=== PATIENT | male | born 1935 | race Caucasian/White ===

== ENCOUNTER 2016-09-14 12:38 | Outpatient (CLI) | payer MEDICARE, OTHER | END 2016-09-14 12:39 | disposition home or self-care (01) | DX: I48.2 Chronic atrial fibrillation (principal); Z79.01 Long term (current) use of anticoagulants ==

== ENCOUNTER 2016-09-23 12:54 | Outpatient (CLI) | payer MEDICARE, OTHER | END 2016-09-23 12:55 | disposition home or self-care (01) | DX: I48.2 Chronic atrial fibrillation (principal); Z79.01 Long term (current) use of anticoagulants ==

== ENCOUNTER 2016-10-06 13:59 | Outpatient (CLI) | payer MEDICARE, OTHER | END 2016-10-06 14:00 | disposition home or self-care (01) | DX: I48.2 Chronic atrial fibrillation (principal); Z79.01 Long term (current) use of anticoagulants ==

== ENCOUNTER 2016-10-21 12:55 | Outpatient (CLI) | payer MEDICARE, OTHER | END 2016-10-21 12:56 | disposition home or self-care (01) | LOC: LAB.F 12:55 | PROVIDERS: ATTEND Pharmacist | DX: I48.2 Chronic atrial fibrillation (principal); Z79.01 Long term (current) use of anticoagulants | CPT/HCPCS: 85610 ==

== ENCOUNTER 2016-11-04 13:33 | Outpatient (CLI) | payer MEDICARE, OTHER | END 2016-11-04 13:34 | disposition home or self-care (01) | DX: I48.2 Chronic atrial fibrillation (principal); Z79.01 Long term (current) use of anticoagulants ==

== ENCOUNTER 2017-03-18 12:47 | Outpatient (CLI) | payer MEDICARE, OTHER | END 2017-03-18 12:48 | disposition home or self-care (01) | LOC: LAB.F 12:47 | PROVIDERS: ATTEND Pharmacist | DX: I48.2 Chronic atrial fibrillation (principal) | CPT/HCPCS: 85610 ==

== ENCOUNTER 2017-05-26 12:56 | Outpatient (CLI) | payer MEDICARE, OTHER | END 2017-05-26 12:57 | disposition home or self-care (01) | LOC: LAB.F 12:56 | PROVIDERS: ATTEND Pharmacist | DX: I48.2 Chronic atrial fibrillation (principal); Z79.01 Long term (current) use of anticoagulants | CPT/HCPCS: 85610 ==

== ENCOUNTER 2017-08-15 11:29 | Outpatient (CLI) | payer MEDICARE, OTHER | END 2017-08-15 11:30 | disposition home or self-care (01) | LOC: LAB.F 11:29 | PROVIDERS: ATTEND Pharmacist | DX: I48.2 Chronic atrial fibrillation (principal); Z79.01 Long term (current) use of anticoagulants | CPT/HCPCS: 85610 ==

== ENCOUNTER 2017-09-07 13:32 | Outpatient (CLI) | payer MEDICARE, OTHER | END 2017-09-07 13:33 | disposition home or self-care (01) | LOC: LAB.F 13:32 | PROVIDERS: ATTEND Pharmacist | DX: I48.2 Chronic atrial fibrillation (principal); Z79.01 Long term (current) use of anticoagulants | CPT/HCPCS: 85610 ==

== ENCOUNTER 2017-09-26 09:07 | Outpatient (CLI) | payer MEDICARE, OTHER | END 2017-09-26 09:08 | disposition home or self-care (01) | LOC: LAB.F 09:07 | PROVIDERS: ATTEND Pharmacist | DX: I48.2 Chronic atrial fibrillation (principal); Z79.01 Long term (current) use of anticoagulants | CPT/HCPCS: 85610 ==

== ENCOUNTER 2017-10-10 13:31 | Outpatient (CLI) | payer MEDICARE, OTHER | END 2017-10-10 13:32 | disposition home or self-care (01) | LOC: LAB.F 13:31 | PROVIDERS: ATTEND Pharmacist | DX: I48.2 Chronic atrial fibrillation (principal); Z79.01 Long term (current) use of anticoagulants | CPT/HCPCS: 85610 ==

== ENCOUNTER 2017-11-24 11:04 | Outpatient (CLI) | payer MEDICARE, OTHER | END 2017-11-24 11:05 | disposition home or self-care (01) | LOC: LAB.F 11:04 | PROVIDERS: ATTEND Pharmacist | DX: I48.2 Chronic atrial fibrillation (principal); Z79.01 Long term (current) use of anticoagulants | CPT/HCPCS: 85610 ==

== ENCOUNTER 2018-01-04 09:26 | Outpatient (CLI) | payer MEDICARE, OTHER | END 2018-01-04 09:27 | disposition home or self-care (01) | LOC: LAB.F 09:26 | PROVIDERS: ATTEND Pharmacist | DX: I48.2 Chronic atrial fibrillation (principal); Z79.01 Long term (current) use of anticoagulants | CPT/HCPCS: 85610 ==

== ENCOUNTER 2018-03-06 14:41 | Outpatient (CLI) | END 2018-03-06 14:42 | disposition home or self-care (01) ==

== ENCOUNTER 2018-05-11 13:23 | Outpatient (CLI) | payer MEDICARE, OTHER | END 2018-05-11 13:24 | disposition home or self-care (01) | LOC: LAB.F 13:23 | PROVIDERS: ATTEND Pharmacist | DX: I48.2 Chronic atrial fibrillation (principal); Z79.01 Long term (current) use of anticoagulants | CPT/HCPCS: 85610 ==

== ENCOUNTER 2018-05-24 14:31 | Outpatient (CLI) | payer MEDICARE, OTHER | END 2018-05-24 14:32 | disposition home or self-care (01) | LOC: LAB.F 14:31 | PROVIDERS: ATTEND Pharmacist | DX: I48.2 Chronic atrial fibrillation (principal); Z79.01 Long term (current) use of anticoagulants | CPT/HCPCS: 85610 ==

== ENCOUNTER 2018-06-28 14:55 | Outpatient (CLI) | payer MEDICARE, OTHER | END 2018-06-28 14:56 | disposition home or self-care (01) | LOC: LAB.F 14:55 | PROVIDERS: ATTEND Pharmacist | DX: I48.2 Chronic atrial fibrillation (principal); Z79.01 Long term (current) use of anticoagulants | CPT/HCPCS: 85610 ==

== ENCOUNTER 2018-09-04 09:30 | Outpatient (CLI) | payer MEDICARE, OTHER | END 2018-09-04 09:31 | disposition home or self-care (01) | LOC: LAB.F 09:30 | PROVIDERS: ATTEND Pharmacist | DX: I48.2 Chronic atrial fibrillation (principal); Z79.01 Long term (current) use of anticoagulants | CPT/HCPCS: 85610 ==

== ENCOUNTER 2018-09-20 12:29 | Outpatient (CLI) | payer MEDICARE, OTHER | END 2018-09-20 12:30 | disposition home or self-care (01) | LOC: LAB.F 12:29 | PROVIDERS: ATTEND Pharmacist | DX: I48.2 Chronic atrial fibrillation (principal); Z79.01 Long term (current) use of anticoagulants | CPT/HCPCS: 85610 ==

== ENCOUNTER 2018-10-13 13:11 | Outpatient (CLI) | payer MEDICARE, OTHER | END 2018-10-13 13:12 | disposition home or self-care (01) | LOC: LAB.F 13:11 | PROVIDERS: ATTEND Pharmacist | DX: I48.2 Chronic atrial fibrillation (principal); Z79.01 Long term (current) use of anticoagulants | CPT/HCPCS: 85610 ==

== ENCOUNTER 2018-11-10 13:33 | Outpatient (CLI) | payer MEDICARE, OTHER | END 2018-11-10 13:34 | disposition home or self-care (01) | LOC: LAB.F 13:33 | PROVIDERS: ATTEND Pharmacist | DX: I48.2 Chronic atrial fibrillation (principal); Z79.01 Long term (current) use of anticoagulants | CPT/HCPCS: 85610 ==

== ENCOUNTER 2018-12-11 11:19 | Outpatient (CLI) | payer MEDICARE, OTHER | END 2018-12-11 11:20 | disposition home or self-care (01) | LOC: LAB.F 11:19 | PROVIDERS: ATTEND Pharmacist | DX: I48.2 Chronic atrial fibrillation (principal); Z79.01 Long term (current) use of anticoagulants | CPT/HCPCS: 85610 ==

== ENCOUNTER 2019-01-11 15:48 | Outpatient (CLI) | payer MEDICARE, OTHER | END 2019-01-11 23:59 | disposition home or self-care (01) | LOC: LAB.F 15:48 | PROVIDERS: ATTEND Pharmacist | DX: I48.2 Chronic atrial fibrillation (principal); Z79.01 Long term (current) use of anticoagulants | CPT/HCPCS: 85610 ==

== ENCOUNTER 2019-01-23 14:06 | Outpatient (CLI) | payer MEDICARE, OTHER | END 2019-01-23 14:07 | disposition home or self-care (01) | LOC: LAB.F 14:06 | PROVIDERS: ATTEND Pharmacist | DX: I48.2 Chronic atrial fibrillation (principal); Z79.01 Long term (current) use of anticoagulants | CPT/HCPCS: 85610 ==

== ENCOUNTER 2019-02-06 12:45 | Outpatient (CLI) | payer MEDICARE, OTHER | END 2019-02-06 12:46 | disposition home or self-care (01) | LOC: LAB.F 12:45 | PROVIDERS: ATTEND Pharmacist | DX: I48.2 Chronic atrial fibrillation (principal); Z79.01 Long term (current) use of anticoagulants | CPT/HCPCS: 85610 ==

== ENCOUNTER 2019-02-22 11:19 | Outpatient (CLI) | payer MEDICARE, OTHER | END 2019-02-22 11:20 | disposition home or self-care (01) | LOC: LAB.F 11:19 | PROVIDERS: ATTEND Pharmacist | DX: I48.2 Chronic atrial fibrillation (principal); Z79.01 Long term (current) use of anticoagulants | CPT/HCPCS: 85610 ==

== ENCOUNTER 2019-03-13 12:32 | Outpatient (CLI) | payer MEDICARE, OTHER | END 2019-03-13 12:33 | disposition home or self-care (01) | LOC: LAB.S 12:32 | PROVIDERS: ATTEND Pharmacist | DX: I48.2 Chronic atrial fibrillation (principal); Z79.01 Long term (current) use of anticoagulants | CPT/HCPCS: 85610 ==

== ENCOUNTER 2019-05-16 13:32 | Outpatient (CLI) | payer MEDICARE, OTHER | END 2019-05-16 13:33 | disposition home or self-care (01) | LOC: LAB.S 13:32 | PROVIDERS: ATTEND Pharmacist | DX: I48.2 Chronic atrial fibrillation (principal); Z79.01 Long term (current) use of anticoagulants | CPT/HCPCS: 85610 ==

== ENCOUNTER 2019-06-08 13:08 | Outpatient (CLI) | payer MEDICARE, OTHER | END 2019-06-08 13:09 | disposition home or self-care (01) | LOC: LAB.S 13:08 | PROVIDERS: ATTEND Pharmacist | DX: I48.2 Chronic atrial fibrillation (principal); Z79.01 Long term (current) use of anticoagulants | CPT/HCPCS: 85610 ==

== ENCOUNTER 2019-06-12 11:34 | Outpatient (CLI) | payer MEDICARE, OTHER | END 2019-06-12 11:35 | disposition home or self-care (01) | LOC: LAB.S 11:34 | PROVIDERS: ATTEND Pharmacist | DX: Z51.81 Encounter for therapeutic drug level monitoring (principal); Z79.01 Long term (current) use of anticoagulants | CPT/HCPCS: 85610 ==

== ENCOUNTER 2019-06-18 13:26 | Outpatient (CLI) | payer MEDICARE, OTHER | END 2019-06-18 13:27 | disposition home or self-care (01) | LOC: LAB.S 13:26 | PROVIDERS: ATTEND Pharmacist | DX: Z79.01 Long term (current) use of anticoagulants (principal) | CPT/HCPCS: 85610 ==

== ENCOUNTER 2019-06-21 11:37 | Outpatient (CLI) | payer MEDICARE, OTHER | END 2019-06-21 11:38 | disposition home or self-care (01) | LOC: LAB.S 11:37 | PROVIDERS: ATTEND Pharmacist | DX: Z51.81 Encounter for therapeutic drug level monitoring (principal); Z79.01 Long term (current) use of anticoagulants | CPT/HCPCS: 85610 ==

== ENCOUNTER 2019-06-25 10:36 | Outpatient (CLI) | payer MEDICARE, OTHER | END 2019-06-25 10:37 | disposition home or self-care (01) | LOC: LAB.S 10:36 | PROVIDERS: ATTEND Pharmacist | DX: Z79.01 Long term (current) use of anticoagulants (principal) | CPT/HCPCS: 85610 ==

== ENCOUNTER 2019-07-02 14:31 | Outpatient (CLI) | payer MEDICARE, OTHER | END 2019-07-02 14:32 | disposition home or self-care (01) | LOC: LAB.S 14:31 | PROVIDERS: ATTEND Pharmacist | DX: Z79.01 Long term (current) use of anticoagulants (principal) | CPT/HCPCS: 85610 ==

== ENCOUNTER 2019-07-16 14:04 | Outpatient (CLI) | payer MEDICARE, OTHER | END 2019-07-16 14:05 | disposition home or self-care (01) | LOC: LAB.S 14:04 | PROVIDERS: ATTEND Pharmacist | DX: Z79.01 Long term (current) use of anticoagulants (principal) | CPT/HCPCS: 85610 ==

== ENCOUNTER 2019-07-23 11:19 | Outpatient (CLI) | payer MEDICARE, OTHER | END 2019-07-23 11:20 | disposition home or self-care (01) | LOC: LAB.S 11:19 | PROVIDERS: ATTEND Pharmacist | DX: Z79.01 Long term (current) use of anticoagulants (principal) | CPT/HCPCS: 85610 ==

== ENCOUNTER 2019-07-30 14:43 | Outpatient (CLI) | payer MEDICARE, OTHER | END 2019-07-30 14:44 | disposition home or self-care (01) | LOC: LAB.S 14:43 | PROVIDERS: ATTEND Pharmacist | DX: Z79.01 Long term (current) use of anticoagulants (principal) | CPT/HCPCS: 85610 ==

== ENCOUNTER 2019-08-20 10:54 | Outpatient (CLI) | payer MEDICARE, OTHER | END 2019-08-20 10:55 | disposition home or self-care (01) | LOC: LAB.S 10:54 | PROVIDERS: ATTEND Pharmacist | DX: Z79.01 Long term (current) use of anticoagulants (principal) | CPT/HCPCS: 85610 ==

== ENCOUNTER 2019-09-03 12:16 | Outpatient (CLI) | payer MEDICARE, OTHER | END 2019-09-03 12:17 | disposition home or self-care (01) | LOC: LAB.S 12:16 | PROVIDERS: ATTEND Pharmacist | DX: Z79.01 Long term (current) use of anticoagulants (principal) | CPT/HCPCS: 85610 ==

== ENCOUNTER 2019-09-07 19:07 | Emergency (ER) | payer MEDICARE, OTHER ==
--- NOTE | 2019-09-07 20:30 | ED Physician Documentation ---
PD HPI LOWER EXT INJURY - Stated complaint Stated Complaint: R FOOT BLEED/BLOOD THINNERS - Chief complaint Chief Complaint: Laceration - History obtained from History obtained from: Patient, Family - History of Present Illness PD HPI LOW EXT INJURY LOCATION: Right, Toe (great toe) Type of injury: Other (He says he had a small lump of dry skin on the tip of the toe that he pulled off and then it started bleeding and has continued to do so over the last couple of hours.). No: Blunt / blow Where injury occurred: Home Timing - onset: Today (He had had a small growth of skin in the area for a week or 2 or longer that he then pulled off today.) Timing - details: Abrupt onset Worsened by: Palpating Associated symptoms: Numbness (chronic due to neuropathy). No: Weakness Contributing factors: Anticoagulated. No: Prior ortho surgery Similar symptoms before: Has not had sx before Recently seen: Clinic (INR last week was 2.4) Review of Systems Constitutional: denies: Fever, Chills Neurologic: reports: Numbness (generally in feet and lower legs due to neuropathy.). denies: Focal weakness Endocrine: reports: Easy bruising / bleeding PD PAST MEDICAL HISTORY - Past Medical History Past Medical History: Yes Cardiovascular: Congestive heart failure, Hypertension, High cholesterol, Arrhythmia Respiratory: None Neuro: None Endocrine/Autoimmune: None GI: GERD : Incontinence HEENT: None Psych: None Musculoskeletal: None Derm: None - Past Surgical History Past Surgical History: Yes Ortho: Arthroscopic surgery Cardiovascular: Coronary stent - Present Medications Home Medications: Ambulatory Orders Medication Instructions Recorded Confirmed Ascorbic Acid [Vitamin C] 1,000 mg PO DAILY 06/09/13 08/15/19 Aspirin 81 mg PO DAILY 06/09/13 08/15/19 Cholecalciferol (Vitamin D3) 2,000 unit PO DAILY 06/09/13 08/15/19 [Vitamin D] Furosemide [Lasix] 20 mg PO DAILY 06/09/13 08/15/19 Imipramine HCl 25 mg PO DAILY 06/09/13 08/15/19 Lisinopril/Hydrochlorothiazide 1 each PO DAILY 06/09/13 08/15/19 [Lisinopril-Hctz 20-12.5 mg Tab] Methadone 10 mg PO HS 06/09/13 08/15/19 Simvastatin 40 mg PO DAILY 06/09/13 08/15/19 Warfarin [Coumadin] 5 mg PO DAILY 06/09/13 08/15/19 atenoloL [Tenormin] 20 mg PO DAILY 06/09/13 08/15/19 L. Acidophilus/L. Rhamnosus 1 cap PO DAILY 08/17/19 08/17/19 [Probiotic 15 Billion Cell Cap] - Allergies Allergies/Adverse Reactions: Allergies Allergy/AdvReac Type Severity Reaction Status Date / Time Penicillins Allergy Intermediate Nausea Verified 09/07/19 19:21 - Social History Does the pt smoke?: No Smoking Status: Never smoker Does the pt drink ETOH?: Yes Does the pt have substance abuse?: No - Immunizations Immunizations are current?: No - POLST Patient has POLST: No PD ED PE NORMAL - Vitals Vital signs reviewed: Yes - General General: Alert and oriented X 3, No acute distress, Well developed/nourished - Derm Derm: Normal color, Warm and dry - Extremities Extremities: Other (right great toe tip with small avulsion of skin without erosion nor redness/purulence. Clot present and only mild ongoing bleeding. ) - Neuro Neuro: Alert and oriented X 3, No motor deficit, Normal speech Eye Opening: Spontaneous Motor: Obeys Commands Verbal: Oriented GCS Score: 15 Results - Vitals Vitals: Vital Signs - 24 hr 09/07/19 09/07/19 09/07/19 19:16 20:01 20:22 Temperature 36.6 C Heart Rate 87 Respiratory 18 18 18 Rate Blood Pressure 146/99 H O2 Saturation 97 09/07/19 09/07/19 20:52 20:55 Temperature Heart Rate 81 Respiratory 18 18 Rate Blood Pressure 159/80 H O2 Saturation 96 Oxygen O2 Source Room air - Labs Labs: Laboratory Tests 09/07/19 20:11 Whole Blood INR 1.8 H PD MEDICAL DECISION MAKING - ED course Complexity details: considered differential (Local anesthetic with 1% lidocaine and then hand-held battery cautery to cauterize the small blood vessels. I then put Dermabond to the site and then a dressing was applied by the tech. No bleeding at this time.), d/w patient Departure - Departure Disposition: 01 Home, Self Care Clinical Impression: Skin avulsion, Anticoagulant long-term use Condition: Stable Record reviewed to determine appropriate education?: Yes Instructions: ED Wound Care Follow-Up: Papo Casillas MD [Primary Care Provider] - Comments: Continue usual medications. Allow the glue to fall off on its own after a couple of days. At that point assume regular wound care of cleaning gently with soap and water and applying a light bit of ointment and keeping it covered with a Band-Aid until it is healed. Recheck if signs of infection. Discharge Date/Time: 09/07/19 20:55
[2019-09-07 20:53] VITALS: BP 159/80
== END 2019-09-07 20:55 | disposition home or self-care (01) ==
LOC: ED 19:07
DX: S91.101A Unspecified open wound of right great toe without damage to nail, initial encounter (principal); X58.XXXA Exposure to other specified factors, initial encounter; I10 Essential (primary) hypertension; Z79.01 Long term (current) use of anticoagulants
CPT/HCPCS: 85610; 99283

== ENCOUNTER 2019-09-19 10:09 | Outpatient (CLI) | payer MEDICARE, OTHER | END 2019-09-19 10:10 | disposition home or self-care (01) | LOC: LAB.S 10:09 | DX: Z79.01 Long term (current) use of anticoagulants (principal) | CPT/HCPCS: 85610 ==

== ENCOUNTER 2019-11-28 12:08 | Outpatient (CLI) | payer MEDICARE, OTHER | END 2019-11-28 12:09 | disposition home or self-care (01) | LOC: LAB.S 12:08 | PROVIDERS: ATTEND Pharmacist | DX: Z79.01 Long term (current) use of anticoagulants (principal) | CPT/HCPCS: 85610 ==

== ENCOUNTER 2019-11-30 11:49 | Outpatient (CLI) | payer MEDICARE, OTHER | END 2019-11-30 11:50 | disposition home or self-care (01) | LOC: LAB.S 11:49 | PROVIDERS: ATTEND Pharmacist | DX: Z79.01 Long term (current) use of anticoagulants (principal) | CPT/HCPCS: 85610 ==

== ENCOUNTER 2019-12-06 11:32 | Outpatient (CLI) | payer MEDICARE, OTHER | END 2019-12-06 11:33 | disposition home or self-care (01) | LOC: LAB.S 11:32 | PROVIDERS: ATTEND Pharmacist | DX: Z79.01 Long term (current) use of anticoagulants (principal) | CPT/HCPCS: 85610 ==

== ENCOUNTER 2020-03-04 11:53 | Outpatient (CLI) | payer MEDICARE, OTHER | END 2020-03-04 11:54 | disposition home or self-care (01) | LOC: LAB.S 11:53 | PROVIDERS: ATTEND Pharmacist | DX: Z79.01 Long term (current) use of anticoagulants (principal) | CPT/HCPCS: 85610 ==

== ENCOUNTER 2020-05-22 15:03 | Outpatient (CLI) | payer MEDICARE, OTHER | END 2020-05-22 15:04 | disposition home or self-care (01) | LOC: LAB.S 15:03 | PROVIDERS: ATTEND Pharmacist | DX: Z79.01 Long term (current) use of anticoagulants (principal) | CPT/HCPCS: 85610 ==

== ENCOUNTER 2020-06-18 01:16 | Outpatient (CLI) | payer MEDICARE, OTHER | END 2020-06-18 01:17 | disposition critical access hospital (66) | LOC: EMS 01:16 | PROVIDERS: ATTEND Surgery | DX: I46.9 Cardiac arrest, cause unspecified (principal) | CPT/HCPCS: A0425; A0427 ==

== ENCOUNTER 2020-06-18 01:47 | Emergency (ER) | payer MEDICARE, OTHER ==
--- NOTE | 2020-06-18 01:31 | ED Physician Documentation ---
History of Present Illness - Stated complaint Stated Complaint: POST CPR - History obtained from History obtained from: Family - Additonal information Additional information: Patient is an 85-year-old male Presents via ambulance after his found him unresponsive and not breathing. EMS states he was in asystole he was intubated given multiple rounds of epi and CPR with return of a spontaneous circulation and presents to the ER the remainder of the history is unknown as the patient is unresponsive. Review of Systems Unable to obtain: Intubated PD PAST MEDICAL HISTORY - Present Medications Home Medications: Ambulatory Orders Medication Instructions Recorded Confirmed Lisinopril/Hydrochlorothiazide 1 each PO DAILY 06/09/13 08/15/19 [Lisinopril-Hctz 20-12.5 mg Tab] Methadone 5 mg PO HS 06/09/13 08/15/19 Simvastatin 40 mg PO DAILY 06/09/13 08/15/19 Warfarin [Coumadin] 5 mg PO DAILY 06/09/13 08/15/19 atenoloL [Tenormin] 25 mg PO DAILY 06/09/13 08/15/19 Gabapentin 300 mg PO DAILY 06/18/20 06/18/20 Gabapentin 600 mg PO QPM 06/18/20 06/18/20 - Allergies Allergies/Adverse Reactions: Allergies Allergy/AdvReac Type Severity Reaction Status Date / Time Penicillins Allergy Intermediate Nausea Verified 09/07/19 19:21 PD ED PE NORMAL - Vitals Vital signs reviewed: Yes - General General: Other (Unresponsive 85-year-old male intubated not responding or moving or following any commands) - HEENT HEENT: Atraumatic, Other (Pupils are 6 mm and unreactive bilaterally there is no signs of trauma no hemotympanum no septal hematoma no acute missing teeth no raccoon eyes no barrett sign) - Neck Neck: Supple, no meningeal sign, Other (Trachea midline endotracheal tube, 7.0 ET tube secured at 25 cm at the lip) - Cardiac Cardiac: RRR, Strong equal pulses, Other - Respiratory Respiratory: Other (Diffuse adventitious lung sounds in bilateral lung hughes trachea is midline) - Abdomen Abdomen: Soft, Non tender, Non distended, Other (No midline abdominal pulsatile mass) - Derm Derm: Warm and dry - Extremities Extremities: No deformity - Neuro Neuro: Other (Unresponsive does not follow commands pupils are 6 mm and unreactive bilaterally) - Psych Psych: Normal mood, Normal affect Results - Vitals Vitals: Vital Signs - 24 hr 06/18/20 06/18/20 06/18/20 01:47 02:00 02:10 Temperature Heart Rate 60 60 59 L Respiratory 18 13 20 Rate Blood Pressure 72/46 L 65/48 L 96/63 O2 Saturation 92 89 L 85 L 06/18/20 06/18/20 06/18/20 02:15 02:20 02:30 Temperature 32.1 C L Heart Rate 58 L 61 62 Respiratory 22 22 Rate Blood Pressure 110/65 131/73 H O2 Saturation 93 92 06/18/20 06/18/20 06/18/20 02:45 03:19 03:55 Temperature Heart Rate 66 60 70 Respiratory 16 20 Rate Blood Pressure 94/55 L 157/89 H O2 Saturation 93 95 06/18/20 06/18/20 04:00 04:15 Temperature 35.9 C L Heart Rate 58 L 55 L Respiratory 22 20 Rate Blood Pressure 112/75 85/64 L O2 Saturation 96 95 Oxygen O2 Source Mechanical ventilator - EKG (time done) 02:18 Rate: Other (no STEMI) - Labs Labs: Laboratory Tests 06/18/20 06/18/20 06/18/20 01:40 01:40 01:40 WBC 14.0 H RBC 4.61 L Hgb 13.6 L Hct 45.5 MCV 98.7 H MCH 29.5 MCHC 29.9 L RDW 15.1 H Plt Count 220 MPV 11.8 H Neut # (Auto) Not Reportable Lymph # (Auto) Not Reportable [place] # (Auto) Not Reportable Eos # (Auto) Not Reportable Baso # (Auto) Not Reportable Absolute Nucleated RBC Not Reportable Total Counted 100 Band Neuts % (Manual) 2 Abnorm Lymph % (Manual) 0 Nucleated RBC % Not Reportable Neutrophils # (Manual) 11.1 H Lymphocytes # (Manual) 1.8 Monocytes # (Manual) 1.0 Eosinophils # (Manual) 0.1 Basophils # (Manual) 0.0 Differential Comment MANUAL DIFFERENTIAL Platelet Estimate NORMAL (130-450,000) RBC Morph Micro Appear NORMAL APPEARANCE PT 35.0 H INR 3.4 H APTT 41.0 H Bld Gas Analysis Time Sample Site ABG pH ABG pCO2 ABG pO2 ABG HCO3 ABG Total CO2 ABG O2 Saturation ABG Base Excess Marco A Test Respiration Rate O2 Delivery Device Vent Mode FiO2 Tidal Volume PEEP Sodium 138 Potassium 4.0 Chloride 100 L Carbon Dioxide 25 Anion Gap 13.0 BUN 21 H Creatinine 1.3 H Estimated GFR (MDRD) 53 L Glucose 214 H Lactic Acid Calcium 8.7 Magnesium 2.5 Total Bilirubin 0.6 AST 78 H ALT 45 Alkaline Phosphatase 122 H Total Creatine Kinase 125 Troponin I High Sens B-Natriuretic Peptide Total Protein 6.9 Albumin 3.6 Globulin 3.3 Albumin/Globulin Ratio 1.1 Lipase 19 L TSH Salicylates < 6.0 Acetaminophen < 10 L Ethyl Alcohol < 5.0 06/18/20 06/18/20 06/18/20 01:40 01:40 01:40 WBC RBC Hgb Hct MCV MCH MCHC RDW Plt Count MPV Neut # (Auto) Lymph # (Auto) [place] # (Auto) Eos # (Auto) Baso # (Auto) Absolute Nucleated RBC Total Counted Band Neuts % (Manual) Abnorm Lymph % (Manual) Nucleated RBC % Neutrophils # (Manual) Lymphocytes # (Manual) Monocytes # (Manual) Eosinophils # (Manual) Basophils # (Manual) Differential Comment Platelet Estimate RBC Morph Micro Appear PT INR APTT Bld Gas Analysis Time Sample Site ABG pH ABG pCO2 ABG pO2 ABG HCO3 ABG Total CO2 ABG O2 Saturation ABG Base Excess Marco A Test Respiration Rate O2 Delivery Device Vent Mode FiO2 Tidal Volume PEEP Sodium Potassium Chloride Carbon Dioxide Anion Gap BUN Creatinine Estimated GFR (MDRD) Glucose Lactic Acid 6.4 H* Calcium Magnesium Total Bilirubin AST ALT Alkaline Phosphatase Total Creatine Kinase Troponin I High Sens 109.4 H* B-Natriuretic Peptide 352 H Total Protein Albumin Globulin Albumin/Globulin Ratio Lipase TSH Salicylates Acetaminophen Ethyl Alcohol 06/18/20 06/18/20 01:40 04:02 WBC RBC Hgb Hct MCV MCH MCHC RDW Plt Count MPV Neut # (Auto) Lymph # (Auto) [place] # (Auto) Eos # (Auto) Baso # (Auto) Absolute Nucleated RBC Total Counted Band Neuts % (Manual) Abnorm Lymph % (Manual) Nucleated RBC % Neutrophils # (Manual) Lymphocytes # (Manual) Monocytes # (Manual) Eosinophils # (Manual) Basophils # (Manual) Differential Comment Platelet Estimate RBC Morph Micro Appear PT INR APTT Bld Gas Analysis Time 0413 Sample Site RIGHT RADIAL ABG pH 7.35 ABG pCO2 36 ABG pO2 74 L ABG HCO3 19.3 L ABG Total CO2 20.4 L ABG O2 Saturation 94 ABG Base Excess -5.5 L Marco A Test POSITIVE Respiration Rate 22 O2 Delivery Device VENTILATOR Vent Mode ASSIST/CONTROL FiO2 1.00 Tidal Volume 500 PEEP 7 Sodium Potassium Chloride Carbon Dioxide Anion Gap BUN Creatinine Estimated GFR (MDRD) Glucose Lactic Acid Calcium Magnesium Total Bilirubin AST ALT Alkaline Phosphatase Total Creatine Kinase Troponin I High Sens B-Natriuretic Peptide Total Protein Albumin Globulin Albumin/Globulin Ratio Lipase TSH 12.60 H Salicylates Acetaminophen Ethyl Alcohol PD MEDICAL DECISION MAKING - ED course Complexity details: reviewed results, re-evaluated patient, considered differential, d/w patient, d/w family ED course: 85-year-old male brought in unresponsive after he was intubated and given CPR and multiple rounds of epinephrine initially the family stated he was a DNR than they stated they wanted him to be a full code but then ultimately indicated that he is a DNR with both of his sons and the present. EKG shows no STEMI he was taken for CT scan of the head which shows a massive intracranial hemorrhage. After reviewing his previous medical records and previous medication list he is on Coumadin as well as multiple antihypertensive medications I suspect this 85-year-old male suffered from a massive intracranial hemorrhage/Hemorrhagic stroke.CT scan confirms this. His INR is supratherapeutic. Kcentra was ordered however given the fact that the patient family does not wish him to be transferred to a higher level of care will hold off on Kcentra as well as discontinue Levophed. The hospitalist was consulted for admission upon evaluation the emergency department and discussion with the hospitalist as well as family consultation decision was made to remove the endotracheal tube and turn off any life-saving medications such as Levophed.The patient then spontaneously at 4:49 AM according to the hospitalist. Please see separate note by the hospitalist, Dr. arce. - Consults Consults: Discussed case with (dr. arce. hospitalist. please see separate note from dr. arce for time of .) - Critical Care Time(min): 30 Time Includes: Direct patient care, Review records, Reassess patient, Document care, Coordinate care, Medical consult, Family consult for tx dec Data interpretation: Labs, ABG, CXR Procedures included in critical care time: Peripheral IV Procedures excluded from critical care time: EKG Departure - Departure Disposition: Clinical Impression: Cardiac arrest, Intracranial hemorrhage, Supratherapeutic INR Condition: Stable Discharge Date/Time: 06/18/20 05:00
[2020-06-18] MEDS ORDERED: cefTRIAXone 1 GM VIAL IVP STA (02:07)
[2020-06-18] MEDS ORDERED: SODIUM CHLORIDE 0.9% 1,000 ML IV STA (02:07)
[2020-06-18 02:17] LABS: BASOPHILS % (AUTO) 0.6 %; EOSINOPHILS % (AUTO) 1.1 %; HGB - HEMOGLOBIN 13.6 g/dL (14.0-18.0); LYMPHOCYTES % (AUTO) 13.6 %; MEAN CORPUSCULAR HEMOGLOBIN 29.5 pg (27.0-31.0); MEAN CORPUSCULAR HGB CONC 29.9 g/dL (32.0-36.0); MEAN CORPUSCULAR VOLUME 98.7 fL (80.0-94.0); MEAN PLATELET VOLUME 11.8 fL (7.4-11.4); MONOCYTES % (AUTO) 6.3 %; NEUTROPHILS % (AUTO) 74.5 %; PLT - PLATELET COUNT 220 10^3/uL (130-450); RED BLOOD COUNT 4.61 10^6/uL (4.70-6.10); RED CELL DISTRIBUTION WIDTH 15.1 % (12.0-15.0)
[2020-06-18 02:20] LABS: ABNORMAL LYMPHS % (MANUAL) 0 %
[2020-06-18 02:26] LABS: ACETAMINOPHEN < 10 ug/mL (10-30); ALBUMIN 3.6 g/dL (3.2-5.5); ALBUMIN/GLOBULIN RATIO 1.1 (1.0-2.2); ALKALINE PHOSPHATASE 122 IU/L (42-121); ALT ALANINE AMINOTRANSFERASE 45 IU/L (10-60); AST ASPARTATE AMINOTRANSFERASE 78 IU/L (10-42); BILIRUBIN,TOTAL 0.6 mg/dL (0.2-1.0); BUN - BLOOD UREA NITROGEN 21 mg/dL (6-20); CALCIUM 8.7 mg/dL (8.5-10.3); CARBON DIOXIDE - CO2 25 mmol/L (21-32); CHLORIDE 100 mmol/L (101-111); CK- CREATINE KINASE 125 IU/L (22-269); CREATININE 1.3 mg/dL (0.6-1.2); GLUCOSE 214 mg/dL (70-100); LIPASE 19 U/L (22-51); MAGNESIUM 2.5 mg/dL (1.7-2.8); SALICYLATE < 6.0 mg/dL; SODIUM 138 mmol/L (135-145); TOTAL PROTEIN 6.9 g/dL (6.7-8.2)
[2020-06-18 02:29] LABS: INR 3.4 (0.8-1.2)
[2020-06-18 02:36] LABS: BAND NEUTROPHILS % (MANUAL) 2 %; DIFFERENTIAL COMMENT MANUAL DIFFERENTIAL; EOSINOPHILS # (MANUAL) 0.1 10^3/uL (0-0.7); LYMPHOCYTES # (MANUAL) 1.8 10^3/uL (1.5-3.5); LYMPHOCYTES % (MANUAL) 13 %; PLATELET ESTIMATE, MANUAL NORMAL (130-450,000) (NORMAL); RBC MORPHOLOGY (MULTIPLE) NORMAL APPEARANCE (NORMAL)
[2020-06-18] MEDS ORDERED: PROTHROMBIN COMPLEX CONC 500 UNIT VIAL IVP STA (03:57)
[2020-06-18 04:16] LABS: ABG BASE EXCESS -5.5 mmol/L (-2.0-3.0); ABG HCO3 19.3 mmol/L (22.0-26.0); ABG OXYGEN SATURATION 94 % (94-98); ABG PCO2 36 mmHg (34-45); ABG PH 7.35 (7.35-7.45); ABG PO2 74 mmHg (80-100); ABG TCO2 20.4 MMOL/L (21.0-29.0); ALLEN TEST POSITIVE
[2020-06-18 04:54] VITALS: BP 85/64
--- NOTE | 2020-06-18 05:20 | PROVIDER PROGRESS NOTE ---
Warehouse Order Picker Note - Warehouse Order Picker Note Warehouse Order Picker Note: I was called to see the patient for admission. Upon presentation to bedside the patient's family which consisted of his and 2 of his sons were at bedside. His explained that they had dinner, watch TV and got ready for bed around 10:30 PM. He got into bed and complained of a feeling of an irritation in his throat. About half an hour later he made a loud sound and then became unresponsive. His called 911 and the patient was brought to the emergency department. His explains that it was a normal day prior to this and he had no complaints throughout the day. CT scan of the brain which was done as part of work-up showed a massive brain bleed. Initially the family had Requested for all intervention to be done but with the findings of the brain bleed they opted for comfort measures. The patient had been intubated and was on norepinephrine. Despite the pressor his blood pressure was 82/70. The patient at this point was not breathing on his own but completely reliant on the ventilator The patient appeared to be actively dying. After confirming their wishes for comfort measures the norepinephrine was discontinued and the patient was extubated. Within a few minutes of extubation carotid pulses were absent. There were no breath or heart sounds on auscultation. Patient's pupils were fixed dilated and unreactive to light. The patient was nonresponsive to tactile and verbal stimuli. He was pronounced at 4:49 AM on June 18, 2020
--- NOTE | 2020-06-18 07:37 | XRAY Report ---
PROCEDURE: Chest for Line Placement INDICATIONS: et tube TECHNIQUE: One view of the chest was acquired. COMPARISON: None FINDINGS: Surgical changes and devices: ET tube projects approximately 6.6 cm superior to the juan.. Lungs and pleura: Bilateral interstitial prominence and cephalization of pulmonary vasculature sugges ting CHF. Increased opacification noted in the right upper lobe which could represent pneumonia or pu lmonary edema. Mediastinum: Mediastinal contours appear normal. Heart is enlarged Bones and chest wall: No suspicious bony lesions. Overlying soft tissues appear unremarkable. IMPRESSION: 1. ET tube proximally 6.6 cm superior to the juan. 2. CHF. 3. Increased opacification in the right upper lobe compatible with pulmonary edema versus pneumonia. Reviewed by: Chelsey Ragland MD, PhD on 06/18/2020 7:36 AM PDT Approved by: Chelsey Ragland MD, PhD on 06/18/2020 7:36 AM PDT Station ID: [id number]
--- NOTE | 2020-06-18 07:45 | CT Report ---
PROCEDURE: HEAD WO INDICATIONS: unresponsive TECHNIQUE: Noncontrast 4.5 mm thick angled axial sections acquired from the foramen magnum to the vertex. For r adiation dose reduction, the following was used: automated exposure control, adjustment of mA and/or kV according to patient size. COMPARISON: None. FINDINGS: Image quality: Excellent. There is a large focus of hyperdensity at the level of the fourth ventricle and saud measuring 46 mm AP by 41 mm transverse. In addition, hyperdensity is identified within the third ventricles as well a s the lateral ventricles. Increased density is noted within the tentorium. There is mild dilation of the temporal horns. There is narrowing of the basal cisterns. No definitive transtentorial herniation is identified. No midline shift. Globes are symmetrical. Sinuses are aerated. Osseous structures are intact. IMPRESSION: 1. Significant hemorrhage within the saud/midbrain with extension into the fourth, third and lateral ventricles with early dilation of the lateral ventricles as above. There is narrowing of the basal ci sterns without gross tentorial herniation. The above findings are concordant with preliminary report. Reviewed by: Angelita Washington MD on 06/18/2020 7:44 AM PDT Approved by: Angelita Washington MD on 06/18/2020 7:44 AM PDT Station ID: [id number]
--- NOTE | 2020-06-18 08:13 | XRAY Report ---
PROCEDURE: Pelvis 1 View INDICATIONS: found down TECHNIQUE: (2). view(s) of the pelvis acquired. COMPARISON: None. FINDINGS: Bones: No fractures or dislocations. No suspicious bony lesions. Right hip arthroplasty. Lower lumb ar spine degenerative disc disease. Soft tissues: Visualized bowel gas pattern is normal. No suspicious soft tissue calcifications. Malhotra rgical clips project over the lower pelvis IMPRESSION: No fracture. No acute osseous lesion. If there is continued clinical concern for pathology, then repe at plain film radiographs (7-10 days) or advanced imaging (CT, MR, bone scan) should be considered fo r further evaluation. Reviewed by: Chelsey Ragland MD, PhD on 06/18/2020 8:12 AM PDT Approved by: Chelsye Ragland MD, PhD on 06/18/2020 8:12 AM PDT Station ID: [id number]
== END 2020-06-18 05:00 | disposition expired ==
LOC: EDUNIT# → ED 01:47
DX: I61.9 Nontraumatic intracerebral hemorrhage, unspecified (principal); R40.20 Unspecified coma; I46.9 Cardiac arrest, cause unspecified; I48.91 Unspecified atrial fibrillation; I45.10 Unspecified right bundle-branch block; I50.9 Heart failure, unspecified; R79.1 Abnormal coagulation profile; Z79.01 Long term (current) use of anticoagulants
CPT/HCPCS: 36415; 36600; 51702; 70450; 71045; 72170; 80053; 80307; 80320; 80329; 82550; 82803; 83605; 83690; 83735; 83880; 84443; 84484; 85025; 85610; 85730; 87040; 87275; 87276; 93005; 94002; 99291